=== PATIENT | male | born 1955 | race Caucasian/White ===

== ENCOUNTER → 2019-04-13 | Outpatient (CLI) | payer BC ==
[~2019-04-13] MED LIST: PERFLUTREN PROTEIN-A MICROSPHR 0.22 MG/ML 3 ML VIAL. IV ONE
--- NOTE | 2019-04-13 12:42 | PCVCIMAG ---
APPROVED REPORT Study performed: 04/13/2019 11:12:51 EXAM: Comprehensive 2D, Doppler, and color-flow Echocardiogram Patient Location: Echo lab Status: routine BSA: 2.88 HR: 55 bpm Rhythm: Atrial Fibrillation Other Information Study Quality: Technically Difficult Risk Factors: Cardiac Risk Factors: HTN, Hyperlipidemia, DM Indications Aortic Valve Disease EMILIANO, Elevated calcium score, PAF Echo Enhancing Agent Indication: Endocardial border delineation Agent(s) / Amount(s) Used: [employer] cc 2D Dimensions IVSd: 20.89 (7-11mm)LVOT Diam: 22.12 (18-24mm) LVDd: 41.42 mm PWd: 19.97 (7-11mm)Ascending Ao: 39.07 (22-36mm) LVDs: 33.95 (25-40mm) Aortic Root: 39.73 mm LV Single Plane 4CH: 36.51 % Volumes Left Atrial Volume (Systole) Single Plane 4CH: 119.78 mLSingle Plane 2CH: 122.65 mL LA ESV Index: 45.00 mL/m2 Aortic Valve AoV Peak Babak.: 3.38 m/s AO Peak Gr.: 45.62 mmHgLVOT Max P.61 mmHg AO Mean Gr.: 26.35 mmHgLVOT Mean P.17 mmHg AO V2 Mean: 2.44 m/sLVOT Max V: 1.18 m/s AO V2 VTI: 80.15 cmLVOT Mean V: 0.82 m/s MARIOLA (VTI): 1.34 [id number] V1 VTI: 27.92 cm MARIOLA Vmax: 1.35 cm2 SV (LVOT): 107.27 mL TDI Medial E' Babak.: 0.10 m/s Lateral E' Babak.: 0.08 m/s Pulmonary Valve PV Peak Gr.: 2.94 mmHg Tricuspid Valve TR Peak Babak.: 3.83 m/s TR Peak Gr.: 58.57 mmHg Left Ventricle The left ventricle is normal size. There is normal LV segmental wall motion. Mild to moderate concentric left ventricular hypertrophy. Left ventricular systolic function is normal. The left ventricular ejection fraction is within the normal range. LVEF is 55-60%. Moderate diastolic dysfunction is present (pseudonormal filling). Right Ventricle The right ventricle is normal size. The right ventricular systolic function is normal. Atria Left atrium is moderately dilated. The right atrium size is normal. Aortic Valve Aortic valve leaflets are moderately calcified, trileaflet, moderately stenotic. Trace aortic regurgitation. Peak aortic gradient is 46mmHg. Mean gradient is 26mmHg. Calculated aortic valve area is 1.3cm2. Mitral Valve Moderate mitral annular calcification. Mild mitral regurgitation. No evidence of mitral valve stenosis. Tricuspid Valve The tricuspid valve is normal in structure. Trace to mild tricuspid regurgitation. Pulmonary artery pressure is 60mmHg. Pulmonic Valve The pulmonary valve is normal in structure. Trace pulmonic regurgitation. Great Vessels The aortic root is normal in size. The ascending aorta is borderline dilate (4.0cm). IVC is normal in size and collapses >50% with inspiration. Pericardium There is no pericardial effusion. <Conclusion> Left ventricular systolic function is normal. There is normal LV segmental wall motion. LVEF is 55-60%. Left atrium is moderately dilated. Aortic valve leaflets are moderately calcified, trileaflet, moderately stenotic. Trace insufficiency Peak aortic gradient is 46mmHg. Mean gradient is 26mmHg. Calculated aortic valve area is 1.3cm2. Moderate mitral annular calcification. Mild mitral regurgitation. Trace to mild tricuspid regurgitation. Pulmonary artery pressure of 60mmHg. The ascending aorta is borderline dilated (4.0cm). There is no pericardial effusion.
== END | disposition home or self-care (01) ==
LOC: PCVCIMAG 11:13
PROVIDERS: ATTEND Internal Medicine
DX: I11.0 Hypertensive heart disease with heart failure (principal); I50.32 Chronic diastolic (congestive) heart failure; I08.3 Combined rheumatic disorders of mitral, aortic and tricuspid valves; R93.1 Abnormal findings on diagnostic imaging of heart and coronary circulation; I48.91 Unspecified atrial fibrillation; G47.33 Obstructive sleep apnea (adult) (pediatric); E11.9 Type 2 diabetes mellitus without complications
CPT/HCPCS: C8929; Q9956